=== PATIENT | female | born 1960 | race Caucasian/White ===

== ENCOUNTER → 2018-12-29 11:37 | Outpatient (CLI) | payer OTHER, SELFPAY ==
[2018-12-29 11:33] VITALS: BMI 31.0
--- NOTE | 2018-12-29 11:46 | RAD_ITS ---
STUDY: X-RAY - RIGHT KNEE REASON FOR EXAM: Fall. TECHNIQUE: 4 view(s) of the knee. COMPARISON: None. FINDINGS: Normal visualized distal femur. Normal visualized proximal tibia and fibula. Normal proximal tibiofibular articulation. There is mild joint space narrowing of the medial femorotibial compartment. Normal lateral femorotibial compartment. Normal patellofemoral articulation. There is mild patellar enthesopathy. There is mild vascular calcification. RAD/Knee 4 or More Views IMPRESSION: Mild arthrosis of the medial femorotibial compartment. Electronically Signed: Gabriel Lindsay MD at 12:40 EDT Tel , Service support ,
--- NOTE | 2018-12-29 11:49 | RAD_ITS ---
STUDY: X-RAY - LEFT KNEE REASON FOR EXAM: Fall. TECHNIQUE: 4 view(s) of the knee. COMPARISON: None. FINDINGS: Normal visualized distal femur. Normal visualized proximal tibia and fibula. Normal proximal tibiofibular articulation. There is mild joint space narrowing of the medial femorotibial compartment. There is mild joint space narrowing of the lateral femorotibial compartment. Normal patellofemoral articulation. There is vascular calcification. RAD/Knee 4 or More Views IMPRESSION: Mild arthrosis of the medial and lateral femorotibial compartments. Electronically Signed: Gabriel Lindsay MD at 14:20 EDT Tel , Service support ,
== END ==
PROVIDERS: Referring Provider Physician Assistant Surgical; Visit Provider Physician Assistant Surgical
DX: S80.01XA Contusion of right knee, initial encounter (principal); S80.02XA Contusion of left knee, initial encounter; X58.XXXA Exposure to other specified factors, initial encounter; Y93.9 Activity, unspecified; Y92.9 Unspecified place or not applicable; Y99.9 Unspecified external cause status
CPT/HCPCS: 73564

== ENCOUNTER → 2021-04-29 | Outpatient (CLI) | payer BC, SELFPAY ==
[2021-04-29 10:31] VITALS: BMI 33.3
[2021-04-29 14:43] LABS: Mucous, Urine 0 SEEN /hpf (<or=2+)
[2021-04-29 14:46] LABS: Color, Urine Yellow (Yellow); Glucose, Dipstick Normal (Normal); Ketone-Dipstick Negative (Negative); Leukocyte Esterase-Dipstick 500 /ul (Negative); Nitrite-Dipstick Positive (Negative); Occult Blood-Urine 250 /ul (Negative); Protein-Dipstick 100 mg/dl (Negative); Specific Gravity, Urine 1.005 (1.002-1.030); Urine Bilirubin Dipstick Negative (Negative); Urine Clarity Clear (Clear); Urine Urobilinogen Normal (Normal)
[2021-04-29 14:55] LABS: Bacteria 2+ /hpf (None Seen); Red Blood Cells-Urine 5-10 SEEN /hpf (0-5); Squamous Epithelial Cells - UA 0-5 SEEN /hpf (5-10); White Blood Cells 10-25 SEEN /hpf (0-5)
== END | disposition home or self-care (01) ==
PROVIDERS: Referring Provider Nurse Practitioner Family; Visit Provider Nurse Practitioner Family
DX: N39.0 Urinary tract infection, site not specified (principal)
CPT/HCPCS: 81001; 87077; 87086; 87088; 87186

== ENCOUNTER 2024-05-19 08:00 | Outpatient (RCR) | payer BC, SELFPAY ==
[2024-05-18 13:12] VITALS: BP 164/95; PULSE 98; RESP 18; TEMP 36.3; BMI 38.2
--- NOTE | 2024-05-19 07:46 | VDLE_ITS ---
Reason For Study: BLE Swelling RIGHT LEFT CFV is compressible, spontaneous, phasic, CFV is compressible, spontaneous, phasic, competent and demonstrates normal competent, and demonstrates normal augmentation. augmentation. FV is compressible, spontaneous, phasic, FV is compressible, spontaneous, phasic, competent and demonstrates normal competent and demonstrates normal augmentation. augmentation. POP V is compressible, spontaneous, phasic, POP V is compressible, spontaneous, phasic, competent and demonstrates normal competent and demonstrates normal augmentation. augmentation. T/P Trunk is compressible. T/P Trunk is compressible. PTV is compressible. PTV is compressible. RT PerV is compressible. LT PerV is compressible. SFJ is INCOMPETENT and measures 0.55 cm. SFJ is INCOMPETENT and measures 0.53 cm. GSV proximal thigh measures 0.35 x 0.33 cm. GSV proximal thigh measures 0.36 x 0.41 cm. GSV at knee measures 0.31 x 0.35 cm. GSV at knee measures 0.40 x 0.43 cm. GSV is competent throughout. GSV is competent throughout. SSV proximal calf is competent and measures SSV proximal calf is competent and measures 0.11 x 0.15 cm. 0.31 x 0.33 cm. Procedure Exam performed in department. This is a venous duplex using B-mode, color flow and spectral Doppler. The exam was diagnostic. VL/Venous Duplex US - Nolan Extrem Interpretation Summary Deep veins of the lower extremities are bilaterally patent and compressible seg mentally. There is no evidence of deep vein thrombosis on either side. Valvular competence appears in tact within the proximal deep venous systems bilaterally. The great saphenous veins appear bila terally patent and compressible segmentally. Sapheno-femoral junctions are bilaterally incompetent . Valvular competence appears to be intact segmentally within the great saphenous veins bi laterally. Small saphenous veins are patent and competent bilaterally. Ordering Physician: Stevenson Callaway Referring Physician: Samia Dominguez Performed By: Greg Lopez RVT
--- NOTE | 2024-05-19 19:20 | HP.PCM_ITS ---
History of Present Illness Date of Service: 05/18/24 Chief Complaint: Bilateral lower extremity ulcerations History of Wound: This is a 63-year-old female who presents with ulcerations of the calves bilaterally. The ulcerations have been present for several months. Denies a history of prior ulcerations in her legs. She denies a history of thrombophlebitis. She claims to sleep on a flat mattress at night. She is not active. She spends long hours each day sitting idlely. The patient claims that the ulcerations are the result of cuts and scrapes. In other words, she claims that the ulcerations are due to trauma. However, the appearance and distribution is more consistent with venous stasis ulcerations. The patient has recently been treated by other providers using Julián wrap's to the lower extremities and has completed a course of oral Bactrim. The patient denies a history of diabetes mellitus, myocardial infarction, congestive heart failure, cerebrovascular accident, renal disease, pulmonary disease, and thyroid disease. [facility] Medical History Venous stasis ulcer Venous stasis ulcer Chronic venous insufficiency Obesity (BMI 30-39.9) Encounter for smoking cessation counseling Smoker History of smoking Chronic use of steroids History of rheumatoid arthritis Arthritis Home Medications ?Medication ?Instructions ?Recorded ?Last Taken ?Type ropinirole 5 mg tablet 5 mg PO DAILY 04/29/21 Unknown History abatacept 125 mg/mL subcutaneous 125 mg subcut QWEEK 05/18/24 Unknown History syringe (Orencia) duloxetine 30 mg capsule,delayed mg PO 05/18/24 Unknown History release duloxetine 60 mg capsule,delayed 60 mg PO DAILY 05/18/24 Unknown History release nicotine 14 mg/24 hr daily 1 patch topical QHS 05/18/24 Unknown History transdermal patch nicotine 7 mg/24 hr daily 1 patch topical DAILY 05/18/24 Unknown History transdermal patch prednisone 5 mg tablet 10 mg PO BID 05/18/24 Unknown History ropinirole 2 mg tablet 2 mg PO QPM 05/18/24 Unknown History sulfamethoxazole 800 1 tab PO Q12.TCU 05/18/24 Unknown History mg-trimethoprim 160 mg tablet Allergy/AdvReac Type Severity Reaction Status Date / Time No Known Allergies Allergy Verified 05/18/24 13:12 Family History Mother Breast cancer Father Myocardial infarction Surgical History laser surgery on back History of repair of left rotator cuff History of carpal tunnel repair History of hysterectomy Social History Smoking Status: Current every day smoker alcohol intake: current alcohol intake frequency: holidays/special occasions only Alcohol type: beer Vital Signs Vital Signs Vital Signs: Weight Weight: 230 lb Body Mass Index (BMI) 38.2 Physical Exam Const alert, oriented x3, no apparent distress, no limitations, healthy appearing and well nourished Constitutional Narrative: The patient is mildly obese, with a BMI of 38.2. General Appearance: cooperative, comfortable, well kempt and well developed Orientation / Consciousness: awake, oriented to person, oriented to place and oriented to time HEENT normocephalic and head/scalp atraumatic Head and Scalp: normal to inspection, normocephalic and atraumatic Face and Sinus: normal facial exam Nose: external nose normal External Ear: external ears normal Eyes PERRL and EOMs intact bilaterally General Eye: normal appearance of both eyes Neck full ROM Chest inspection of chest normal Resp normal respiratory effort, normal air movement, no retractions, no use of accessory muscles and clear to auscultation bilaterally Effort and Inspection: able to speak in complete sentences Cardio regular rate, regular rhythm, S1 normal heart sound and S2 normal heart sound Extremity no calf tenderness General Extremity: Negative for clubbing or cyanosis Skin Wound Narrative: Mild swelling is noted in the lower extremities bilaterally. Ulcerations are noted in the lower extremities bilaterally. They are located on the left lateral calf, both superiorly and inferiorly. There is also an ulceration on t he left medial calf. A clustered ulceration is noted on the right lateral calf. The dimensions of the ulcerations are documented elsewhere. There is no sign of infection or cellulitis. A small amount of bioburden and nonviable tissue is noted at each site. Hair: normal Neuro oriented x3, CN's II-XII intact bilaterally, moves all extremities and no focal motor deficits Sensorium / Orientation: awake, alert, oriented to person, oriented to place and oriented to time Psych Appearance: grossly normal and appropriate Attitude: calm Activity / Motor Behavior: appropriate eye contact Speech: normal speech Mood & Affect: euthymic mood Thought Process: normal thought process Thought Content: normal thought content Attention / Concentration: attention grossly intact Debridement Note Debridement Note Wound debrided: Left lateral calf ulcerations, superior and inferior Laterality: Left Type of Debridement: Excisional debridement Anesthesia Used: 5% Lidocaine Gel and Cetacaine Depth: Down to and including healthy tissue and in the subcutaneous layer Percentage of wound debrided: 100 Instrument Used: 5mm curette Tissue Removed: Bioburden and nonviable tissue Severity: Fat Layer Exposed Amount of bleeding with debridement: Mild Bleeding Controlled with: Compression and gauze Patient tolerated procedure: Patient tolerated procedure well Post-Debridement Measurements and Additional Note: Post-Debridement Measurements/Treatment - Nurse 1 - General Ulcer Assessment Start: 05/18/24 13:12 Freq: Status: Active Protocol: GAYATHRI Activity Type Activity Date Activity User E-sign Co-sign Detail Recorded Client Recorded Date Recorded By Document 05/18/24 13:12 KW gj 05/18/24 13:30 KW 05/18/24 13:12 - Today's Visit Information Type of service Initial Visit Arrival Mode Ambulatory Patient Identification Verified (Name & Yes ) Height and Weight Height 5 ft 5 in Weight 230 lb Weight in Pounds 230.0 lbs Weight Measurement Method Estimated by Patient Body Mass Index (BMI) 38.2 BMI Classification Obese BSA - Vidya 2.10 Vital Signs Temperature (97.8 F-99.1 F) 97.3 F L Temperature Source Temporal Pulse Rate (60-100) 98 Pulse Location Monitor Respiratory Rate (12-18) 18 Respiratory rate source Observation Oxygen Delivery Method Room Air Blood Pressure (90/60-120/80) 164/95 H Blood Pressure Mean 118 Source Monitor Position Semi-Fowlers Blood Pressure Location Left Arm History Since Last Visit- (Skip if this is Patient's initial visit) Left Footwear Regular Shoe Right Footwear Regular Shoe Pain Scale: 0-10 Numeric Is Patient Pain Free? No Lower Extremity Assessment/ Foot Assessment/ Toe Nail Assessment Right -Posterior Tibial Palpable Yes -Dorsalis Pedis Palpable Yes -Extremity Color Hemosiderin -Temperature of Extremity Cool -Capillary Refill Less than 3 Seconds -Thick No -Discolored No -Deformed No -Improper Length & Hygeine No Left -Posterior Tibial Palpable Yes -Posterior Tibial Doppler Multiphasic -Dorsalis Pedis Palpable Yes -Dorsalis Pedis Doppler Multiphasic -Extremity Color Hemosiderin -Hair Growth on Legs No -Hair Growth on Toes No -Temperature of Extremity Cool -Capillary Refill Less than 3 Seconds -Thick No -Discolored No -Deformed No -Improper Length & Hygeine No Communication Assessment Preferred language Hungarian Transportation Dispatcher Required No Able to Read No Able to Write No Communication Tools None Caregiver Communication Skills No Impairment Impairment Right Hearing Abillity Normal Left Hearing Abillity Normal Visual Assistive Devices Glasses Teaching Assessment Preferences Verbal,Written, Demonstration Barriers to Learning None Readiness To Learn Excellent Willingness to Engage in Self Management High Activies Readiness to Engage in Self Management High Activities Anxiety Level Calm Cooperation Cooperative Perception Coherent Interest in Health Problem Asks Questions Education Importance Acknowledges Need Does Patient Smoke tobacco or other Yes substances Smoking Status Current every day smoker Is Patient Diabetic No Functional Assessment Recent Decline in Ability to Perform Denies Any Declines Culture/Congregational/Latex Spooler Cultural/Congregational Needs that may affect No Treatment Plan Would you allow our hospital assistant family teacher to No meet you for the purpose of spiritual/ emotional support? Latex Spooler to contact place of sikhism No WC - Nurse 1 - General Ulcer Measurement Start: 05/18/24 13:12 Freq: Status: Active Protocol: Activity Type Activity Date Activity User E-sign Co-sign Detail Recorded Client Recorded Date Recorded By Document 05/18/24 13:12 KW gj 05/18/24 13:30 KW 05/18/24 13:12 Wound Center Nurse 1 #4 RT LAT LE CLUSTER -Current Size (cm) - Length 4.5 -Current Size (cm) - Width 2.7 -Current Size (cm) - Depth 0.1 -Total Square Cm 12.15 -Date of Last Picture (Recall this 05/18/24 field) -Exudate Amt Medium -Exudate Type Serosanguineous -Wound Margin Distinct, Outline Attached -Granulation Amt Large (67-100%) -Granulation Quality [place] -Necrosis Amt Large (67-100%) -Necrotic Tissue Type Adherent Slough -Texture ([place]-wound Skin Appearance) Assessed -Moisture ([place]-wound Skin Appearance) Assessed -Color ([place]-wound Skin Appearance) Assessed, Erythema -Temperature ([place]-wound Skin No Abnormality Appearance) (Pt Warm) -Tenderness on Palpation ([place]-wound No Skin Appearance) -Ulcer Cleansing Soap and Water -Foul Odor after Cleansing No -Anesthetic Used 4% Lidocaine Solution #3 LT MED LE -Current Size (cm) - Length 1 -Current Size (cm) - Width 1.3 -Current Size (cm) - Depth 0.2 -Total Square Cm 1.3 -Date of Last Picture (Recall this 05/18/24 field) -Exudate Amt Medium -Exudate Type Serosanguineous -Wound Margin Distinct, Outline Attached -Granulation Amt Small (1-33%) -Granulation Quality [place] -Necrosis Amt Large (67-100%) -Necrotic Tissue Type Adherent Slough -Texture ([place]-wound Skin Appearance) Assessed -Moisture ([place]-wound Skin Appearance) Assessed -Color ([place]-wound Skin Appearance) Assessed, Erythema -Temperature ([place]-wound Skin No Abnormality Appearance) (Pt Warm) -Tenderness on Palpation ([place]-wound No Skin Appearance) -Ulcer Cleansing Soap and Water -Foul Odor after Cleansing No -Anesthetic Used 4% Lidocaine Solution #2 LT LAT INFERIOR LE -Current Size (cm) - Length 2.4 -Current Size (cm) - Width 1.5 -Current Size (cm) - Depth 0.3 -Total Square Cm 3.60 -Date of Last Picture (Recall this 05/18/24 field) -Exudate Amt Medium -Exudate Type Serosanguineous -Wound Margin Distinct, Outline Attached -Granulation Amt Small (1-33%) -Granulation Quality [place] -Necrosis Amt Large (67-100%) -Necrotic Tissue Type Adherent Slough -Texture ([place]-wound Skin Appearance) Assessed -Moisture ([place]-wound Skin Appearance) Assessed -Color ([place]-wound Skin Appearance) Assessed, Erythema -Temperature ([place]-wound Skin No Abnormality Appearance) (Pt Warm) -Tenderness on Palpation ([place]-wound No Skin Appearance) -Ulcer Cleansing Soap and Water -Foul Odor after Cleansing No -Anesthetic Used 4% Lidocaine Solution #1 LT LAT SUPERIOR LE -Current Size (cm) - Length 1 -Current Size (cm) - Width 1 -Current Size (cm) - Depth 0.1 -Total Square Cm 1 -Date of Last Picture (Recall this 05/18/24 field) -Exudate Amt Small -Exudate Type Serosanguineous -Wound Margin Distinct, Outline Attached -Granulation Amt Medium (34-66%) -Granulation Quality [place] -Necrosis Amt Medium (34-66%) -Necrotic Tissue Type Adherent Slough -Texture ([place]-wound Skin Appearance) Assessed -Moisture ([place]-wound Skin Appearance) Assessed -Color ([place]-wound Skin Appearance) Assessed, Erythema -Temperature ([place]-wound Skin No Abnormality Appearance) (Pt Warm) -Tenderness on Palpation ([place]-wound No Skin Appearance) -Ulcer Cleansing Soap and Water -Foul Odor after Cleansing No -Anesthetic Used 4% Lidocaine Solution Right Calf (cm) 39.8 Right Ankle (cm) 25.2 Left Calf (cm) 40 Left Ankle (cm) 24 WC - Nurse 2 - General Ulcer CM Notes Start: 05/18/24 13:12 Freq: Status: Active Protocol: Activity Type Activity Date Activity User E-sign Co-sign Detail Recorded Client Recorded Date Recorded By Document 05/18/24 14:05 JF 0000 05/18/24 14:20 JF 05/18/24 14:05 Wound Center Nurse 2 #4 RT LAT LE CLUSTER -Time 14:09 -Correct Patient Yes -Correct Side, Site, Position Yes -Correct Procedure Yes -Procedure Performed Yes -Type of Procedure Debridement -Clinical Debridement Subcutaneous -Tissue Removed Subcutaneous -Post Debridement (cm) - Length 4.5 -Post Debridement (cm) - Width 2.8 -Post Debridement (cm) - Depth 0.1 -Total Square (Post) (cm) 12.60 -Area of Debridement (cm) - Length 4.5 -Area of Debridement (cm) - Width 2.8 -Total Square (Area) (cm) 12.60 -Tunneling No -Undermining/Tunneling No -Circular Undermining No -Wound/Ulcer Outcome Not Healed -Ulcer Cleansing Rinsed/ Irrigated with Saline -Foul Odor after Cleansing No -Bioengineered Tissue No -Bleeding Controlled with Pressure -Treatment Response Procedure Tolerated Well -Offloading No -Debridement - Subq, 1st 20sq cm No #3 LT MED LE -Time 14:10 -Correct Patient Yes -Correct Side, Site, Position Yes -Correct Procedure Yes -Procedure Performed Yes -Type of Procedure Debridement -Clinical Debridement Subcutaneous -Tissue Removed Subcutaneous -Post Debridement (cm) - Length 1.1 -Post Debridement (cm) - Width 1.3 -Post Debridement (cm) - Depth 0.2 -Total Square (Post) (cm) 1.43 -Area of Debridement (cm) - Length 1.1 -Area of Debridement (cm) - Width 1.3 -Total Square (Area) (cm) 1.43 -Tunneling No -Undermining/Tunneling No -Circular Undermining No -Wound/Ulcer Outcome Not Healed -Ulcer Cleansing Rinsed/ Irrigated with Saline -Foul Odor after Cleansing No -Bioengineered Tissue No -Bleeding Controlled with Pressure -Treatment Response Procedure Tolerated Well -Offloading No -Debridement - Subq, 1st 20sq cm No #2 LT LAT INFERIOR LE -Time 14:10 -Correct Patient Yes -Correct Side, Site, Position Yes -Correct Procedure Yes -Procedure Performed Yes -Type of Procedure Debridement -Clinical Debridement Subcutaneous -Tissue Removed Subcutaneous -Post Debridement (cm) - Length 2.5 -Post Debridement (cm) - Width 1.5 -Post Debridement (cm) - Depth 0.1 -Total Square (Post) (cm) 3.75 -Area of Debridement (cm) - Length 2.5 -Area of Debridement (cm) - Width 1.5 -Total Square (Area) (cm) 3.75 -Tunneling No -Undermining/Tunneling No -Circular Undermining No -Wound/Ulcer Outcome Not Healed -Ulcer Cleansing Rinsed/ Irrigated with Saline -Foul Odor after Cleansing No -Bioengineered Tissue No -Bleeding Controlled with Pressure -Treatment Response Procedure Tolerated Well -Offloading No -Debridement - Subq, 1st 20sq cm No #1 LT LAT SUPERIOR LE -Time 14:12 -Correct Patient Yes -Correct Side, Site, Position Yes -Correct Procedure Yes -Procedure Performed Yes -Type of Procedure Debridement -Clinical Debridement Subcutaneous -Tissue Removed Subcutaneous -Post Debridement (cm) - Length 1.1 -Post Debridement (cm) - Width 1.0 -Post Debridement (cm) - Depth 0.1 -Total Square (Post) (cm) 1.10 -Area of Debridement (cm) - Length 1.1 -Area of Debridement (cm) - Width 1.0 -Total Square (Area) (cm) 1.10 -Tunneling No -Undermining/Tunneling No -Circular Undermining No -Wound/Ulcer Outcome Not Healed -Ulcer Cleansing Rinsed/ Irrigated with Saline -Foul Odor after Cleansing No -Bioengineered Tissue No -Bleeding Controlled with Pressure -Treatment Response Procedure Tolerated Well -Offloading No -Debridement - Subq, 1st 20sq cm Yes Pain Scale: 0-10 Numeric Is Patient Pain Free? Yes WC - Nurse 3 - General Ulcer D/C NN Start: 05/18/24 13:12 Freq: Status: Active Protocol: Activity Type Activity Date Activity User E-sign Co-sign Detail Recorded Client Recorded Date Recorded By Document 05/18/24 14:36 RB wound 05/18/24 14:37 RB 05/18/24 14:36 Wound Care Center Nurse 3 #4 RT LAT LE CLUSTER -Ulcer Cleansing Rinsed/ Irrigated with Saline -Primary Dressing Applied C Hydrogel ($) -Primary Dressing Covered/Secured with Dry Gauze,Dry Gauze & Roll Gauze,Secured with Tape #3 LT MED LE -Other Dressing hydrogel -Primary Dressing Covered/Secured with Dry Gauze,Dry Gauze & Roll Gauze,Secured with Tape #2 LT LAT INFERIOR LE -Ulcer Cleansing Rinsed/ Irrigated with Saline -Other Dressing hydrogel -Primary Dressing Covered/Secured with Dry Gauze,Dry Gauze & Roll Gauze,Secured with Tape #1 LT LAT SUPERIOR LE -Ulcer Cleansing Rinsed/ Irrigated with Saline -Other Dressing hydrogel -Primary Dressing Covered/Secured with Dry Gauze,Dry Gauze & Roll Gauze,Secured with Tape Right -Tubular Bandage Double Layer -Size of Tubigrip Used Size E -Size E ($) 2 Left -Tubular Bandage Double Layer -Size of Tubigrip Used Size E -Size E ($) 2 Treatment Response Procedure Tolerated Well Pain Scale: 0-10 Numeric Is Patient Pain Free? Yes Teaching: Wound Center Compression Wraps & Stockings -Person Taught Patient -Teaching Method Discussion, Demonstration -Response to teaching Verbalize understanding Dressing Your Wound -Person Taught Patient -Teaching Method Discussion, Demonstration -Response to teaching Verbalize understanding WC - Visit Discharge Discharge Condition Stable Ambulatory Status Ambulatory Transportation Private Auto Medication Reconcilliation completed & No provided to patient/care provider Clinical Summary of Care Provided Yes Additional Wound Wound debrided: Left medial calf ulceration Laterality: Left Type of Debridement: Excisional debridement Anesthesia Used: 5% Lidocaine Gel and Cetacaine Depth: Down to and including healthy tissue and in the subcutaneous layer Percentage of wound debrided: 100 Instrument Used: 5mm curette Tissue Removed: Bioburden and nonviable tissue Severity: Fat Layer Exposed Amount of bleeding with debridement: Mild Bleeding Controlled with: Compression and gauze Patient tolerated procedure: Patient tolerated procedure well Additional Wound Wound debrided: Clustered right lateral calf ulceration Laterality: Right Type of Debridement: Excisional debridement Anesthesia Used: 5% Lidocaine Gel and Cetacaine Depth: Down to and including healthy tissue and in the subcutaneous layer Percentage of wound debrided: 100 Instrument Used: 5mm curette Tissue Removed: Bioburden and nonviable tissue Severity: Fat Layer Exposed Amount of bleeding with debridement: Mild Bleeding Controlled with: Compression and gauze Patient tolerated procedure: Patient tolerated procedure well Charges/Coding Multi Select Codes Visit Charges Office Visit/Consults: 50553 OV L4 New 45 min Integumentary Integumentary CPT Codes: 38781 Angelic subq tissue 20 sq cm/< (09582 - Right leg; 94466 - Left leg) Assessment/Plan Assessment/Plan (1) Venous stasis ulcer: CODE(S): I83.009 - Varicose veins of unspecified lower extremity with ulcer of unspecified site; L97.909 - Non-pressure chronic ulcer of unspecified part of unspecified lower leg with unspecified severity QUALIFIERS: Venous stasis ulcer site: calf Varicose vein presence: with varicose veins Laterality: right Non-pressure ulcer stage: with fat layer exposed Qualified Code(s): I83.012 - Varicose veins of right lower extremity with ulcer of calf; L97.212 - Non-pressure chronic ulcer of right calf with fat layer exposed (2) Venous stasis ulcer: CODE(S): I83.009 - Varicose veins of unspecified lower extremity with ulcer of unspecified site; L97.909 - Non-pressure chronic ulcer of unspecified part of unspecified lower leg with unspecified severity QUALIFIERS: Venous stasis ulcer site: calf Varicose vein presence: with varicose veins Laterality: left Non-pressure ulcer stage: with fat layer exposed Qualified Code(s): I83.022 - Varicose veins of left lower extremity with ulcer of calf; L97.222 - Non-pressure chronic ulcer of left calf with fat layer exposed (3) Chronic venous insufficiency: CODE(S): I87.2 - Venous insufficiency (chronic) (peripheral) (4) Chronic use of steroids: (5) Smoker: CODE(S): F17.200 - Nicotine dependence, unspecified, uncomplicated (6) History of smoking: CODE(S): Z87.891 - Personal history of nicotine dependence (7) Encounter for smoking cessation counseling: CODE(S): Z71.6 - Tobacco abuse counseling (8) History of rheumatoid arthritis: CODE(S): Z87.39 - Personal history of other diseases of the musculoskeletal system and connective tissue (9) Obesity (BMI 30-39.9): CODE(S): E66.9 - Obesity, unspecified (10) History of carpal tunnel repair: CODE(S): Z98.890 - Other specified postprocedural states (11) History of repair of left rotator cuff: CODE(S): Z98.890 - Other specified postprocedural states PLAN: Plan This is a 63-year-old female who presented with ulcerations on the lower extremities bilaterally. These ulcerations have been present for several months, and have failed to heal appropriately. By appearances, the ulcerations appear to be venous in origin. The appropriate measures relative to the management of chronic venous insufficiency have been discussed with the patient in detail. Patient has been instructed to elevate her lower extremities is much as possible. She is to continue sleeping on a flat mattress at night. She is to elevate her lower extremities during daytime hours as well. Leg elevation is to be to heart level, or higher. The patient has been provided Tubigrip's to be worn on a daily basis. Activity and ambulation have been encouraged. We are to implement the use of collagen hydrogel which will be applied to her ulcerations on a daily basis. The patient has been instructed in the appropriate means of application. A venous duplex examination is to be obtained. The patient has been instructed to maintain a nutritious diet. She has been advised to discontinue her smoking habit. In addition, because she is on chronic steroid therapy for her rheumatoid arthritis. It has been explained that the steroids may delay the wound healing process. Total time: 56 minutes
--- NOTE | 2024-05-21 09:01 | WC ---
PHOTO 05/18/24 RIGHT LATERAL CLUSTER
--- NOTE | 2024-05-21 09:03 | WC ---
PHOTO 05/18/24 LEFT LATERAL LE
--- NOTE | 2024-05-21 09:04 | WC ---
PHOTO 05/18/24 LEFT LATERAL INER LE
== END 2024-05-19 23:59 | disposition home or self-care (01) ==
LOC: WC 08:00
PROVIDERS: PCP Student in an Organized Health Care Education/Training Program; Referring Provider Student in an Organized Health Care Education/Training Program; Visit Provider Surgery
DX: I83.012 Varicose veins of right lower extremity with ulcer of calf (principal); L97.212 Non-pressure chronic ulcer of right calf with fat layer exposed; I83.022 Varicose veins of left lower extremity with ulcer of calf; L97.222 Non-pressure chronic ulcer of left calf with fat layer exposed; M06.9 Rheumatoid arthritis, unspecified; E66.9 Obesity, unspecified; Z68.38 Body mass index [BMI] 38.0-38.9, adult; F17.200 Nicotine dependence, unspecified, uncomplicated; Z71.6 Tobacco abuse counseling; Z79.52 Long term (current) use of systemic steroids; Z79.899 Other long term (current) drug therapy; Z98.890 Other specified postprocedural states
CPT/HCPCS: 11042; 93970; 99214; G0463

== ENCOUNTER 2024-06-15 13:30 | Outpatient (RCR) | payer BC, SELFPAY ==
[2024-05-25 00:04] VITALS: BP 164/95; PULSE 98; RESP 18; TEMP 36.3; BMI 38.2
[2024-05-25 13:18] VITALS: BP 165/101; PULSE 95; RESP 18; TEMP 36.3; BMI 38.2
--- NOTE | 2024-05-25 14:13 | HP.PCM_ITS ---
History of Present Illness Date of Service: 05/25/24 Chief Complaint: Bilateral lower extremity ulcerations History of Wound: This is a 63-year-old female who presented with ulcerations of the calves bilaterally. The ulcerations had been present for several months. She denied a history of prior ulcerations in her legs. She denied a history of thrombophlebitis. She claims to sleep on a flat mattress at night. She is not active. She spends long hours each day sitting idlely. The patient claims that the ulcerations are the result of cuts and scrapes. In other words, she claims that the ulcerations are due to trauma. However, the appearance and distribution is more consistent with venous stasis ulcerations. The patient has recently been treated by other providers using Julián wrap's to the lower extremities and has completed a course of oral Bactrim. The patient denied a history of diabetes mellitus, myocardial infarction, congestive heart failure, cerebrovascular accident, renal disease, pulmonary disease, and thyroid disease. [facility] Medical History Venous stasis ulcer Venous stasis ulcer Chronic venous insufficiency Obesity (BMI 30-39.9) Encounter for smoking cessation counseling Smoker History of smoking Chronic use of steroids History of rheumatoid arthritis Arthritis Home Medications ?Medication ?Instructions ?Recorded ?Last Taken ?Type ropinirole 5 mg tablet 5 mg PO DAILY 04/29/21 Unknown History abatacept 125 mg/mL subcutaneous 125 mg subcut QWEEK 05/18/24 Unknown History syringe (Orencia) duloxetine 30 mg capsule,delayed mg PO 05/18/24 Unknown History release duloxetine 60 mg capsule,delayed 60 mg PO DAILY 05/18/24 Unknown History release nicotine 14 mg/24 hr daily 1 patch topical QHS 05/18/24 Unknown History transdermal patch nicotine 7 mg/24 hr daily 1 patch topical DAILY 05/18/24 Unknown History transdermal patch prednisone 5 mg tablet 10 mg PO BID 05/18/24 Unknown History ropinirole 2 mg tablet 2 mg PO QPM 05/18/24 Unknown History sulfamethoxazole 800 1 tab PO Q12.TCU 05/18/24 Unknown History mg-trimethoprim 160 mg tablet Allergy/AdvReac Type Severity Reaction Status Date / Time No Known Allergies Allergy Verified 05/18/24 13:12 Family History Mother Breast cancer Father Myocardial infarction Surgical History laser surgery on back History of repair of left rotator cuff History of carpal tunnel repair History of hysterectomy Social History Smoking Status: Current every day smoker alcohol intake: current alcohol intake frequency: holidays/special occasions only Alcohol type: beer Vital Signs Vital Signs Vital Signs: 05/25/24 00:04 05/25/24 13:18 Temperature 97.3 F L 97.4 F L Temperature Source Temporal Pulse Rate 98 95 Respiratory Rate 18 18 Blood Pressure 164/95 H 165/101 H Blood Pressure Mean 118 122 Blood Pressure Source Monitor Monitor Blood Pressure Position Semi-Fowlers Blood Pressure Location Left Arm Left Arm Oxygen Delivery Method Room Air Weight Weight: 230 lb Body Mass Index (BMI) 38.2 Physical Exam Const alert, oriented x3, no apparent distress, no limitations, healthy appearing and well nourished Constitutional Narrative: The patient is mildly obese, with a BMI of 38.2. General Appearance: cooperative, comfortable, well kempt and well developed Orientation / Consciousness: awake, oriented to person, oriented to place and oriented to time HEENT normocephalic and head/scalp atraumatic Head and Scalp: normal to inspection, normocephalic and atraumatic Face and Sinus: normal facial exam Nose: external nose normal External Ear: external ears normal Eyes PERRL and EOMs intact bilaterally General Eye: normal appearance of both eyes Neck full ROM Chest inspection of chest normal Resp normal respiratory effort, normal air movement, no retractions, no use of accessory muscles and clear to auscultation bilaterally Effort and Inspection: able to speak in complete sentences Cardio regular rate, regular rhythm, S1 normal heart sound and S2 normal heart sound Extremity no calf tenderness General Extremity: Negative for clubbing or cyanosis Skin Wound Narrative: Minimal swelling is noted in the lower extremities bilaterally. Ulcerations are noted in the lower extremities bilaterally. They are located on the left lateral calf, both superiorly and inferiorly. There is also an ulceration on the left medial calf. A clustered ulceration is noted on the right lateral calf. The dimensions of the ulcerations are documented elsewhere. There is no sign of infection or cellulitis. A small amount of bioburden and nonviable tissue are noted at each site. Of note, there are numerous small scratches and scrapes on both lower extremities which are located diffusely. There are also numerous scratches on both upper extremities. It is observed that there are 4 Band-Aids in total on the patient's legs, and 2 Band-Aids on each arm. Hair: normal Neuro oriented x3, CN's II-XII intact bilaterally, moves all extremities and no focal motor deficits Sensorium / Orientation: awake, alert, oriented to person, oriented to place and oriented to time Psych Appearance: grossly normal and appropriate Attitude: calm Activity / Motor Behavior: appropriate eye contact Speech: normal speech Mood & Affect: euthymic mood Thought Process: normal thought process Thought Content: normal thought content Attention / Concentration: attention grossly intact Debridement Note Debridement Note Wound debrided: Left lateral calf ulcerations, superior and inferior Laterality: Left Type of Debridement: Excisional debridement Anesthesia Used: 5% Lidocaine Gel and Cetacaine Depth: Down to and including healthy tissue and in the subcutaneous layer Percentage of wound debrided: 100 Instrument Used: 5mm curette Tissue Removed: Bioburden and nonviable tissue Severity: Fat Layer Exposed Amount of bleeding with debridement: Mild Bleeding Controlled with: Compression and gauze Patient tolerated procedure: Patient tolerated procedure well Post-Debridement Measurements and Additional Note: Post-Debridement Measurements/Treatment - Nurse 1 - General Ulcer Assessment Start: 05/25/24 13:16 Freq: Status: Active Protocol: IRENA.LOWMARY Activity Type Activity Date Activity User E-sign Co-sign Detail Recorded Client Recorded Date Recorded By Document 05/25/24 13:18 KW 05/25/24 13:31 KW 05/25/24 13:18 - Today's Visit Information Type of service Follow-up Visit (Physician/INTERNAL COMMUNICATIONS MANAGER ) Arrival Mode Ambulatory Patient Identification Verified (Name & Yes ) Height and Weight Body Mass Index (BMI) 38.2 BMI Classification Obese Vital Signs Temperature (97.8 F-99.1 F) 97.4 F L Temperature Source Temporal Pulse Rate (60-100) 95 Pulse Location Monitor Respiratory Rate (12-18) 18 Respiratory rate source Observation Oxygen Delivery Method Room Air Blood Pressure (90/60-120/80) 165/101 H Blood Pressure Mean 122 Source Monitor Position Semi-Fowlers Blood Pressure Location Left Arm History Since Last Visit- (Skip if this is Patient's initial visit) Have you changed medications since your No last visit? Any new allergies or adverse reactions No Had a fall/change in ADL's that may No increase risk of falls Signs or symptoms of abuse and/or No neglect since last visit Have you been in the hospital since your No last visit? Has dressing in place as prescribed Yes Has compression in place as prescribed Yes Has offloadiing in place as prescribed N/A Experienced any changes in pain level or No management Left Footwear Regular Shoe Right Footwear Regular Shoe Pain Scale: 0-10 Numeric Is Patient Pain Free? Yes WC - Nurse 1 - General Ulcer Measurement Start: 05/25/24 13:16 Freq: Status: Active Protocol: Activity Type Activity Date Activity User E-sign Co-sign Detail Recorded Client Recorded Date Recorded By Document 05/25/24 13:18 KW kl 05/25/24 13:31 KW 05/25/24 13:18 Wound Center Nurse 1 #4 RT LAT LE CLUSTER -Current Size (cm) - Length 4.5 -Current Size (cm) - Width 3.3 -Current Size (cm) - Depth 0.1 -Total Square Cm 14.85 -Date of Last Picture (Recall this 05/25/24 field) -Exudate Amt Medium -Exudate Type Serosanguineous -Wound Margin Distinct, Outline Attached -Granulation Amt Large (67-100%) -Granulation Quality Red -Necrosis Amt Small (1-33%) -Necrotic Tissue Type Adherent Slough -Texture (Carmenza-wound Skin Appearance) Assessed -Moisture (Carmenza-wound Skin Appearance) Assessed -Color (Carmenza-wound Skin Appearance) Assessed, Erythema -Temperature ([place]armenza-wound Skin No Abnormality Appearance) (Pt Warm) -Tenderness on Palpation (Carmenza-wound No Skin Appearance) -Ulcer Cleansing Rinsed/ Irrigated with Saline -Foul Odor after Cleansing No -Anesthetic Used 5% Lidocaine Gel #3 LT MED LE -Current Size (cm) - Length 0.6 -Current Size (cm) - Width 1 -Current Size (cm) - Depth 0.2 -Total Square Cm 0.6 -Date of Last Picture (Recall this 05/25/24 field) -Exudate Amt Small -Exudate Type Serosanguineous -Wound Margin Distinct, Outline Attached -Granulation Amt Large (67-100%) -Granulation Quality Red -Texture (Carmenza-wound Skin Appearance) Assessed -Moisture (Carmenza-wound Skin Appearance) Assessed -Color (Carmenza-wound Skin Appearance) Assessed, Erythema -Temperature (Carmenza-wound Skin No Abnormality Appearance) (Pt Warm) -Tenderness on Palpation (Carmenza-wound No Skin Appearance) -Ulcer Cleansing Rinsed/ Irrigated with Saline -Foul Odor after Cleansing No -Anesthetic Used 5% Lidocaine Gel #2 LT LAT INFERIOR LE -Current Size (cm) - Length 2.1 -Current Size (cm) - Width 1.2 -Current Size (cm) - Depth 0.4 -Total Square Cm 2.52 -Date of Last Picture (Recall this 05/25/24 field) -Exudate Amt Medium -Exudate Type Serosanguineous -Wound Margin Distinct, Outline Attached -Granulation Amt Large (67-100%) -Granulation Quality Red -Necrosis Amt Small (1-33%) -Necrotic Tissue Type Adherent Slough -Texture (Carmenza-wound Skin Appearance) Assessed -Moisture (Carmenza-wound Skin Appearance) Assessed -Color (Carmenza-wound Skin Appearance) Assessed, Erythema -Temperature ([place]armenza-wound Skin No Abnormality Appearance) (Pt Warm) -Ulcer Cleansing Rinsed/ Irrigated with Saline -Foul Odor after Cleansing No -Anesthetic Used 5% Lidocaine Gel #1 LT LAT SUPERIOR LE -Current Size (cm) - Length 1 -Current Size (cm) - Width 0.9 -Current Size (cm) - Depth 0.1 -Total Square Cm 0.9 -Date of Last Picture (Recall this 05/25/24 field) -Exudate Amt Small -Exudate Type Serosanguineous -Granulation Amt Large (67-100%) -Granulation Quality Red -Necrosis Amt Small (1-33%) -Necrotic Tissue Type Adherent Slough -Texture (Carmenza-wound Skin Appearance) Assessed -Moisture (Carmenza-wound Skin Appearance) Assessed -Color (Carmenza-wound Skin Appearance) Assessed, Erythema -Temperature (Carmenza-wound Skin No Abnormality Appearance) (Pt Warm) -Tenderness on Palpation (Carmenza-wound No Skin Appearance) -Ulcer Cleansing Rinsed/ Irrigated with Saline -Foul Odor after Cleansing No -Anesthetic Used 5% Lidocaine Gel WC - Nurse 2 - General Ulcer CM Notes Start: 05/25/24 13:16 Freq: Status: Active Protocol: Activity Type Activity Date Activity User E-sign Co-sign Detail Recorded Client Recorded Date Recorded By Document 05/25/24 13:41 DS 1 05/25/24 13:49 DS 05/25/24 13:41 Wound Center Nurse 2 #4 RT LAT LE CLUSTER -Time 13:15 -Correct Patient Yes -Correct Side, Site, Position Yes -Correct Procedure Yes -Procedure Performed Yes -Type of Procedure Debridement -Clinical Debridement Subcutaneous -Tissue Removed Epidermis, Subcutaneous -Post Debridement (cm) - Length 4.4 -Post Debridement (cm) - Width 1.6 -Post Debridement (cm) - Depth 0.1 -Total Square (Post) (cm) 7.04 -Area of Debridement (cm) - Length 4.4 -Area of Debridement (cm) - Width 1.6 -Total Square (Area) (cm) 7.04 -Tunneling No -Undermining/Tunneling No -Circular Undermining No -Wound/Ulcer Outcome Not Healed -Bleeding Controlled with Pressure -Treatment Response Procedure Tolerated Well -Debridement - Subq, 1st 20sq cm No #3 LT MED LE -Time 13:15 -Correct Patient Yes -Correct Side, Site, Position Yes -Correct Procedure Yes -Procedure Performed Yes -Type of Procedure Debridement -Clinical Debridement Subcutaneous -Tissue Removed Subcutaneous -Post Debridement (cm) - Length 0.8 -Post Debridement (cm) - Width 1.0 -Post Debridement (cm) - Depth 0.1 -Total Square (Post) (cm) 0.80 -Area of Debridement (cm) - Length 0.8 -Area of Debridement (cm) - Width 1.0 -Total Square (Area) (cm) 0.80 -Tunneling No -Undermining/Tunneling No -Circular Undermining No -Wound/Ulcer Outcome Not Healed -Ulcer Cleansing Rinsed/ Irrigated with Saline -Bleeding Controlled with Pressure -Treatment Response Procedure Tolerated Well -Debridement - Subq, 1st 20sq cm No #2 LT LAT INFERIOR LE -Time 13:15 -Correct Patient Yes -Correct Side, Site, Position Yes -Correct Procedure Yes -Procedure Performed Yes -Type of Procedure Debridement -Clinical Debridement Subcutaneous -Tissue Removed Subcutaneous -Post Debridement (cm) - Length 1.5 -Post Debridement (cm) - Width 1.4 -Post Debridement (cm) - Depth 0.1 -Total Square (Post) (cm) 2.10 -Area of Debridement (cm) - Length 1.5 -Area of Debridement (cm) - Width 1.4 -Total Square (Area) (cm) 2.10 -Tunneling No -Undermining/Tunneling No -Circular Undermining No -Wound/Ulcer Outcome Not Healed -Bleeding Controlled with Pressure -Treatment Response Procedure Tolerated Well -Debridement - Subq, 1st 20sq cm No #1 LT LAT SUPERIOR LE -Time 13:15 -Correct Patient Yes -Correct Side, Site, Position Yes -Correct Procedure Yes -Procedure Performed Yes -Type of Procedure Debridement -Clinical Debridement Subcutaneous -Tissue Removed Subcutaneous -Post Debridement (cm) - Length 1.0 -Post Debridement (cm) - Width 0.6 -Post Debridement (cm) - Depth 0.4 -Total Square (Post) (cm) 0.60 -Area of Debridement (cm) - Length 1.0 -Area of Debridement (cm) - Width 0.6 -Total Square (Area) (cm) 0.60 -Tunneling No -Undermining/Tunneling No -Circular Undermining No -Wound/Ulcer Outcome Not Healed -Bleeding Controlled with Pressure -Treatment Response Procedure Tolerated Well -Debridement - Subq, 1st 20sq cm Yes Pain Scale: 0-10 Numeric Is Patient Pain Free? Yes Additional Wound Wound debrided: Left medial calf ulceration Laterality: Left Type of Debridement: Excisional debridement Anesthesia Used: 5% Lidocaine Gel Depth: Down to and including healthy tissue and in the subcutaneous layer Percentage of wound debrided: 100 Instrument Used: 5mm curette Tissue Removed: Bioburden and nonviable tissue Severity: Fat Layer Exposed Amount of bleeding with debridement: Mild Bleeding Controlled with: Compression and gauze Patient tolerated procedure: Patient tolerated procedure well Additional Wound Wound debrided: Clustered right lateral calf ulceration Laterality: Right Type of Debridement: Excisional debridement Anesthesia Used: 5% Lidocaine Gel and Cetacaine Depth: Down to and including healthy tissue and in the subcutaneous layer Percentage of wound debrided: 100 Instrument Used: 5mm curette Tissue Removed: Bioburden and nonviable tissue Severity: Fat Layer Exposed Amount of bleeding with debridement: Mild Bleeding Controlled with: Compression and gauze Patient tolerated procedure: Patient tolerated procedure well Charges/Coding Multi Select Codes Integumentary Integumentary CPT Codes: 34377 Angelic subq tissue 20 sq cm/< (41857 - Right leg; 55576 - Left leg) Assessment/Plan Assessment/Plan (1) Venous stasis ulcer: CODE(S): I83.009 - Varicose veins of unspecified lower extremity with ulcer of unspecified site; L97.909 - Non-pressure chronic ulcer of unspecified part of unspecified lower leg with unspecified severity QUALIFIERS: Venous stasis ulcer site: calf Varicose vein presence: with varicose veins Laterality: right Non-pressure ulcer stage: with fat layer exposed Qualified Code(s): I83.012 - Varicose veins of right lower extremity with ulcer of calf; L97.212 - Non-pressure chronic ulcer of right calf with fat layer exposed (2) Venous stasis ulcer: CODE(S): I83.009 - Varicose veins of unspecified lower extremity with ulcer of unspecified site; L97.909 - Non-pressure chronic ulcer of unspecified part of unspecified lower leg with unspecified severity QUALIFIERS: Venous stasis ulcer site: calf Varicose vein presence: with varicose veins Laterality: left Non-pressure ulcer stage: with fat layer exposed Qualified Code(s): I83.022 - Varicose veins of left lower extremity with ulcer of calf; L97.222 - Non-pressure chronic ulcer of left calf with fat layer exposed (3) Chronic venous insufficiency: CODE(S): I87.2 - Venous insufficiency (chronic) (peripheral) (4) Chronic use of steroids: (5) Smoker: CODE(S): F17.200 - Nicotine dependence, unspecified, uncomplicated (6) History of smoking: CODE(S): Z87.891 - Personal history of nicotine dependence (7) Encounter for smoking cessation counseling: CODE(S): Z71.6 - Tobacco abuse counseling (8) History of rheumatoid arthritis: CODE(S): Z87.39 - Personal history of other diseases of the musculoskeletal system and connective tissue (9) Obesity (BMI 30-39.9): CODE(S): E66.9 - Obesity, unspecified (10) History of carpal tunnel repair: CODE(S): Z98.890 - Other specified postprocedural states (11) History of repair of left rotator cuff: CODE(S): Z98.890 - Other specified postprocedural states PLAN: Plan This is a 63-year-old female who presented with ulcerations on the lower extremities bilaterally. These ulcerations have been present for several months, and have failed to heal appropriately. By appearances, the ulcerations appear to be venous in origin. However, it is noted that the patient has multiple scratches and scrapes throughout all extremities, with multiple Band- Aids in place on all extremities. The patient claims to be clumsy, and indicates that these are all self-inflicted. 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 The appropriate measures relative to the management of chronic venous insufficiency have been discussed with the patient in detail. Patient has been instructed to elevate her lower extremities is much as possible. She is to continue sleeping on a flat mattress at night. She is to elevate her lower extremities during daytime hours as well. Leg elevation is to be to heart level, or higher. The patient has been provided Tubigrip's to be worn on a daily basis. Activity and ambulation have been encouraged. We are to continue the use of collagen hydrogel which will be applied to her ulcerations on a daily basis. The patient has been instructed in the appropriate means of application. A venous duplex examination has been obtained, revealing the saphenofemoral junctions to be incompetent bilaterally, though the great and small saphenous veins are bilaterally competent. The patient has been instructed to maintain a nutritious diet. She has been advised to discontinue her smoking habit. In addition, because she is on chronic steroid therapy for her rheumatoid arthritis, t has been explained that the steroids may delay the wound healing process. Total time: 25 minutes
--- NOTE | 2024-05-26 08:34 | WC ---
PHOTO LEFT LATERAL LE 05/25/24
--- NOTE | 2024-05-26 08:34 | WC ---
PHOTO LLE MEDIAL 05/25/24
--- NOTE | 2024-05-26 08:35 | WC ---
PHOTO RIGHT LATERAL CLUSTER 05/25/24
[2024-06-08 13:31] VITALS: BP 169/100; PULSE 108; RESP 18; TEMP 36.1; BMI 38.2
--- NOTE | 2024-06-08 16:42 | HP.PCM_ITS ---
History of Present Illness Date of Service: 06/08/24 Chief Complaint: Bilateral lower extremity ulcerations History of Wound: This is a 63-year-old female who presented with ulcerations of the calves bilaterally. The ulcerations had been present for several months. She denied a history of prior ulcerations in her legs. She denied a history of thrombophlebitis. She claims to sleep on a flat mattress at night. She is not active. She spends long hours each day sitting idlely. The patient claims that the ulcerations are the result of cuts and scrapes. In other words, she claims that the ulcerations are due to trauma. However, the appearance and distribution is more consistent with venous stasis ulcerations. The patient has recently been treated by other providers using Julián wrap's to the lower extremities and has completed a course of oral Bactrim. The patient denied a history of diabetes mellitus, myocardial infarction, congestive heart failure, cerebrovascular accident, renal disease, pulmonary disease, and thyroid disease. [facility] Medical History Venous stasis ulcer Venous stasis ulcer Chronic venous insufficiency Obesity (BMI 30-39.9) Encounter for smoking cessation counseling Smoker History of smoking Chronic use of steroids History of rheumatoid arthritis Arthritis Home Medications ?Medication ?Instructions ?Recorded ?Last Taken ?Type ropinirole 5 mg tablet 5 mg PO DAILY 04/29/21 Unknown History abatacept 125 mg/mL subcutaneous 125 mg subcut QWEEK 05/18/24 Unknown History syringe (Orencia) duloxetine 30 mg capsule,delayed mg PO 05/18/24 Unknown History release duloxetine 60 mg capsule,delayed 60 mg PO DAILY 05/18/24 Unknown History release nicotine 14 mg/24 hr daily 1 patch topical QHS 05/18/24 Unknown History transdermal patch nicotine 7 mg/24 hr daily 1 patch topical DAILY 05/18/24 Unknown History transdermal patch prednisone 5 mg tablet 10 mg PO BID 05/18/24 Unknown History ropinirole 2 mg tablet 2 mg PO QPM 05/18/24 Unknown History sulfamethoxazole 800 1 tab PO Q12.TCU 05/18/24 Unknown History mg-trimethoprim 160 mg tablet Allergy/AdvReac Type Severity Reaction Status Date / Time No Known Allergies Allergy Verified 05/18/24 13:12 Family History Mother Breast cancer Father Myocardial infarction Surgical History laser surgery on back History of repair of left rotator cuff History of carpal tunnel repair History of hysterectomy Social History Smoking Status: Current every day smoker alcohol intake: current alcohol intake frequency: holidays/special occasions only Alcohol type: beer Vital Signs Vital Signs Vital Signs: 06/08/24 13:31 Temperature 97 F L Temperature Source Temporal Pulse Rate 108 H Respiratory Rate 18 Blood Pressure 169/100 H Blood Pressure Mean 123 Blood Pressure Source Monitor Blood Pressure Position Semi-Fowlers Blood Pressure Location Right Arm Weight Weight: 230 lb Body Mass Index (BMI) 38.2 Physical Exam Const alert, oriented x3, no apparent distress, no limitations, healthy appearing and well nourished Constitutional Narrative: The patient is mildly obese, with a BMI of 38.2. General Appearance: cooperative, comfortable, well kempt and well developed Orientation / Consciousness: awake, oriented to person, oriented to place and oriented to time HEENT normocephalic and head/scalp atraumatic Head and Scalp: normal to inspection, normocephalic and atraumatic Face and Sinus: normal facial exam Nose: external nose normal External Ear: external ears normal Eyes PERRL and EOMs intact bilaterally General Eye: normal appearance of both eyes Neck full ROM Chest inspection of chest normal Resp normal respiratory effort, normal air movement, no retractions, no use of accessory muscles and clear to auscultation bilaterally Effort and Inspection: able to speak in complete sentences Cardio regular rate, regular rhythm, S1 normal heart sound and S2 normal heart sound Extremity no calf tenderness General Extremity: Negative for clubbing or cyanosis Skin Wound Narrative: Minimal swelling is noted in the lower extremities bilaterally. The ulcerations in the right lower extremity are now completely healed and epithelialized. Only 1 ulceration remains in the left lower extremity, located on the left lateral calf. This ulceration has decreased in size, and is generally pink and healthy in appearance, with a small amount of bioburden. Centrally, there is a small depression. The dimensions of the ulceration are documented elsewhere. There is no sign of infection or cellulitis. Hair: normal Neuro oriented x3, CN's II-XII intact bilaterally, moves all extremities and no focal motor deficits Sensorium / Orientation: awake, alert, oriented to person, oriented to place and oriented to time Psych Appearance: grossly normal and appropriate Attitude: calm Activity / Motor Behavior: appropriate eye contact Speech: normal speech Mood & Affect: euthymic mood Thought Process: normal thought process Thought Content: normal thought content Attention / Concentration: attention grossly intact Debridement Note Debridement Note Wound debrided: Left lateral calf Laterality: Left Type of Debridement: Excisional debridement Anesthesia Used: 5% Lidocaine Gel and Cetacaine Depth: Down to and including healthy tissue and in the subcutaneous layer Percentage of wound debrided: 100 Instrument Used: 3mm curette Tissue Removed: Bioburden and nonviable tissue Severity: Fat Layer Exposed Amount of bleeding with debridement: Mild Bleeding Controlled with: Compression and gauze Patient tolerated procedure: Patient tolerated procedure well Post-Debridement Measurements and Additional Note: Post-Debridement Measurements/Treatment - Nurse 1 - General Ulcer Assessment Start: 05/25/24 13:16 Freq: Status: Active Protocol: GAYATHRI Activity Type Activity Date Activity User E-sign Co-sign Detail Recorded Client Recorded Date Recorded By Document 05/25/24 13:18 KW 05/25/24 13:31 KW Document 06/08/24 13:31 RB [id number] 06/08/24 13:44 RB 05/25/24 06/08/24 13:18 13:31 - Today's Visit Information Type of service Follow-up Visit Follow-up Visit (Physician/CLINICAL FIELD SPECIALIST (Physician/CLINICAL FIELD SPECIALIST ) ) Arrival Mode Ambulatory Ambulatory Transfer Assistance None Patient Identification Verified (Name & Yes Yes ) Patient Requires Transmission-Based No Precautions Safety Precautions NA Height and Weight Body Mass Index (BMI) 38.2 38.2 BMI Classification Obese Obese Vital Signs Temperature (97.8 F-99.1 F) 97.4 F L 97 F L Temperature Source Temporal Temporal Pulse Rate (60-100) 95 108 H Pulse Location Monitor Respiratory Rate (12-18) 18 18 Respiratory rate source Observation Observation Oxygen Delivery Method Room Air Blood Pressure (90/60-120/80) 165/101 H 169/100 H Blood Pressure Mean 122 123 Source Monitor Monitor Position Semi-Fowlers Semi-Fowlers Blood Pressure Location Left Arm Right Arm History Since Last Visit- (Skip if this is Patient's initial visit) Have you changed medications since your No No last visit? Any new allergies or adverse reactions No No Had a fall/change in ADL's that may No No increase risk of falls Signs or symptoms of abuse and/or No No neglect since last visit Have you been in the hospital since your No No last visit? Has dressing in place as prescribed Yes Yes Has compression in place as prescribed Yes No Has offloadiing in place as prescribed N/A No Experienced any changes in pain level or No No management Left Footwear Regular Shoe Right Footwear Regular Shoe Pain Scale: 0-10 Numeric Is Patient Pain Free? Yes Yes WC - Nurse 1 - General Ulcer Measurement Start: 05/25/24 13:16 Freq: Status: Active Protocol: Activity Type Activity Date Activity User E-sign Co-sign Detail Recorded Client Recorded Date Recorded By Document 05/25/24 13:18 KW kl 05/25/24 13:31 KW Document 06/08/24 13:31 RB [id number] 06/08/24 13:44 RB 05/25/24 06/08/24 13:18 13:31 Wound Center Nurse 1 #4 RT LAT LE CLUSTER -Combined with other wound No -Current Size (cm) - Length 4.5 0.1 -Current Size (cm) - Width 3.3 0.1 -Current Size (cm) - Depth 0.1 0.1 -Total Square Cm 14.85 0.01 -Date of Last Picture (Recall this 05/25/24 field) -Photo Taken Yes -Tunneling No -Undermining/Tunneling No -Circular Undermining No -Exudate Amt Medium Small -Exudate Type Serosanguineous Serosanguineous -Wound Margin Distinct, Distinct, Outline Outline Attached Attached -Granulation Amt Large (67-100%) Medium (34-66%) -Granulation Quality [place] -Slough/Fibrin Yes -Necrosis Amt Small (1-33%) Small (1-33%) -Necrotic Tissue Type Adherent Slough Adherent Slough -Structure Exposed N/A -Texture ([place]-wound Skin Appearance) Assessed Assessed -Moisture ([place]-wound Skin Appearance) Assessed Assessed -Color ([place]-wound Skin Appearance) Assessed, Assessed Erythema -Temperature ([place]-wound Skin No Abnormality No Abnormality Appearance) (Pt Warm) (Pt Warm) -Tenderness on Palpation ([place]-wound No No Skin Appearance) -Ulcer Cleansing Rinsed/ Rinsed/ Irrigated with Irrigated with Saline Saline -Foul Odor after Cleansing No No -Anesthetic Used 5% Lidocaine Gel #3 LT MED LE -Combined with other wound No -Current Size (cm) - Length 0.6 0.1 -Current Size (cm) - Width 1 0.1 -Current Size (cm) - Depth 0.2 0.1 -Total Square Cm 0.6 0.01 -Date of Last Picture (Recall this 05/25/24 field) -Photo Taken Yes -Tunneling No -Undermining/Tunneling No -Circular Undermining No -Exudate Amt Small Small -Exudate Type Serosanguineous Sanguineous -Wound Margin Distinct, Distinct, Outline Outline Attached Attached -Granulation Amt Large (67-100%) Medium (34-66%) -Granulation Quality [place] -Slough/Fibrin Yes -Necrosis Amt Small (1-33%) -Necrotic Tissue Type Adherent Slough -Structure Exposed N/A -Texture ([place]-wound Skin Appearance) Assessed Assessed -Moisture ([place]-wound Skin Appearance) Assessed Assessed -Color ([place]-wound Skin Appearance) Assessed, Assessed Erythema -Temperature ([place]-wound Skin No Abnormality No Abnormality Appearance) (Pt Warm) (Pt Warm) -Tenderness on Palpation ([place]-wound No No Skin Appearance) -Ulcer Cleansing Rinsed/ Rinsed/ Irrigated with Irrigated with Saline Saline -Foul Odor after Cleansing No No -Anesthetic Used 5% Lidocaine Gel #1 LT LAT SUPERIOR LE -Combined with other wound No -Current Size (cm) - Length 1 0.1 -Current Size (cm) - Width 0.9 0.1 -Current Size (cm) - Depth 0.1 0.1 -Total Square Cm 0.9 0.01 -Date of Last Picture (Recall this 05/25/24 field) -Photo Taken Yes -Tunneling No -Undermining/Tunneling No -Circular Undermining No -Exudate Amt Small Small -Exudate Type Serosanguineous Sanguineous -Wound Margin Distinct, Outline Attached -Granulation Amt Large (67-100%) Medium (34-66%) -Granulation Quality [place] -Slough/Fibrin Yes -Necrosis Amt Small (1-33%) Small (1-33%) -Necrotic Tissue Type Adherent Slough Adherent Slough -Structure Exposed N/A -Texture ([place]-wound Skin Appearance) Assessed Assessed -Moisture ([place]-wound Skin Appearance) Assessed Assessed -Color ([place]-wound Skin Appearance) Assessed, Assessed Erythema -Temperature ([place]-wound Skin No Abnormality No Abnormality Appearance) (Pt Warm) (Pt Warm) -Tenderness on Palpation ([place]-wound No No Skin Appearance) -Ulcer Cleansing Rinsed/ Rinsed/ Irrigated with Irrigated with Saline Saline -Foul Odor after Cleansing No No -Anesthetic Used 5% Lidocaine Gel #2 LT LAT INFERIOR LE -Combined with other wound No -Current Size (cm) - Length 2.1 1 -Current Size (cm) - Width 1.2 0.6 -Current Size (cm) - Depth 0.4 0.4 -Total Square Cm 2.52 0.6 -Date of Last Picture (Recall this 05/25/24 field) -Photo Taken Yes -Tunneling No -Undermining/Tunneling No -Circular Undermining No -Exudate Amt Medium Medium -Exudate Type Serosanguineous Serosanguineous -Wound Margin Distinct, Distinct, Outline Outline Attached Attached -Granulation Amt Large (67-100%) Medium (34-66%) -Granulation Quality [place] -Slough/Fibrin Yes -Necrosis Amt Small (1-33%) Small (1-33%) -Necrotic Tissue Type Adherent Slough Adherent Slough -Structure Exposed N/A -Texture ([place]-wound Skin Appearance) Assessed Assessed -Moisture ([place]-wound Skin Appearance) Assessed Assessed -Color ([place]-wound Skin Appearance) Assessed, Assessed Erythema -Temperature ([place]-wound Skin No Abnormality No Abnormality Appearance) (Pt Warm) (Pt Warm) -Tenderness on Palpation ([place]-wound No Skin Appearance) -Ulcer Cleansing Rinsed/ Rinsed/ Irrigated with Irrigated with Saline Saline -Foul Odor after Cleansing No No -Anesthetic Used 5% Lidocaine 5% Lidocaine Gel Gel Lower Limb Edema Present Yes Right Calf (cm) 41 Right Ankle (cm) 23.2 Left Calf (cm) 39.5 Left Ankle (cm) 23 WC - Nurse 2 - General Ulcer CM Notes Start: 05/25/24 13:16 Freq: Status: Active Protocol: Activity Type Activity Date Activity User E-sign Co-sign Detail Recorded Client Recorded Date Recorded By Document 05/25/24 13:41 DS 1 05/25/24 13:49 DS Document 06/08/24 13:56 [id number] 06/08/24 14:00 JF 05/25/24 06/08/24 13:41 13:56 Wound Center Nurse 2 #4 RT LAT LE CLUSTER -Time 13:15 -Correct Patient Yes No -Correct Side, Site, Position Yes No -Correct Procedure Yes No -Procedure Performed Yes No -Type of Procedure Debridement -Clinical Debridement Subcutaneous -Tissue Removed Epidermis, Subcutaneous -Post Debridement (cm) - Length 4.4 0 -Post Debridement (cm) - Width 1.6 0 -Post Debridement (cm) - Depth 0.1 0 -Total Square (Post) (cm) 7.04 0 -Area of Debridement (cm) - Length 4.4 0 -Area of Debridement (cm) - Width 1.6 0 -Total Square (Area) (cm) 7.04 0 -Tunneling No -Undermining/Tunneling No -Circular Undermining No -Wound/Ulcer Outcome Not Healed Healed- Epithelialized -Bleeding Controlled with Pressure -Treatment Response Procedure Tolerated Well -Debridement - Subq, 1st 20sq cm No #3 LT MED LE -Time 13:15 -Correct Patient Yes No -Correct Side, Site, Position Yes No -Correct Procedure Yes No -Procedure Performed Yes No -Type of Procedure Debridement -Clinical Debridement Subcutaneous -Tissue Removed Subcutaneous -Post Debridement (cm) - Length 0.8 0 -Post Debridement (cm) - Width 1.0 0 -Post Debridement (cm) - Depth 0.1 0 -Total Square (Post) (cm) 0.80 0 -Area of Debridement (cm) - Length 0.8 0 -Area of Debridement (cm) - Width 1.0 0 -Total Square (Area) (cm) 0.80 0 -Tunneling No -Undermining/Tunneling No -Circular Undermining No -Wound/Ulcer Outcome Not Healed Healed- Epithelialized -Ulcer Cleansing Rinsed/ Irrigated with Saline -Bleeding Controlled with Pressure -Treatment Response Procedure Tolerated Well -Debridement - Subq, 1st 20sq cm No #1 LT LAT SUPERIOR LE -Time 13:15 -Correct Patient Yes No -Correct Side, Site, Position Yes No -Correct Procedure Yes No -Procedure Performed Yes No -Type of Procedure Debridement -Clinical Debridement Subcutaneous -Tissue Removed Subcutaneous -Post Debridement (cm) - Length 1.0 0 -Post Debridement (cm) - Width 0.6 0 -Post Debridement (cm) - Depth 0.4 0 -Total Square (Post) (cm) 0.60 0 -Area of Debridement (cm) - Length 1.0 0 -Area of Debridement (cm) - Width 0.6 0 -Total Square (Area) (cm) 0.60 0 -Tunneling No -Undermining/Tunneling No -Circular Undermining No -Wound/Ulcer Outcome Not Healed Healed- Epithelialized -Bleeding Controlled with Pressure -Treatment Response Procedure Tolerated Well -Debridement - Subq, 1st 20sq cm Yes #2 LT LAT INFERIOR LE -Time 13:15 13:58 -Correct Patient Yes Yes -Correct Side, Site, Position Yes Yes -Correct Procedure Yes Yes -Procedure Performed Yes Yes -Type of Procedure Debridement Debridement -Clinical Debridement Subcutaneous Subcutaneous -Tissue Removed Subcutaneous Subcutaneous -Post Debridement (cm) - Length 1.5 1.3 -Post Debridement (cm) - Width 1.4 0.8 -Post Debridement (cm) - Depth 0.1 0.4 -Total Square (Post) (cm) 2.10 1.04 -Area of Debridement (cm) - Length 1.5 1.3 -Area of Debridement (cm) - Width 1.4 0.8 -Total Square (Area) (cm) 2.10 1.04 -Tunneling No No -Undermining/Tunneling No No -Circular Undermining No No -Wound/Ulcer Outcome Not Healed Not Healed -Ulcer Cleansing Rinsed/ Irrigated with Saline -Foul Odor after Cleansing No -Bioengineered Tissue No -Bleeding Controlled with Pressure Pressure -Treatment Response Procedure Procedure Tolerated Well Tolerated Well -Offloading No -Debridement - Subq, 1st 20sq cm No Yes Pain Scale: 0-10 Numeric Is Patient Pain Free? Yes Yes - Nurse 3 - General Ulcer D/C NN Start: 05/25/24 13:16 Freq: Status: Active Protocol: Activity Type Activity Date Activity User E-sign Co-sign Detail Recorded Client Recorded Date Recorded By Document 05/25/24 14:52 KW stephen 05/25/24 14:52 KW Document 06/08/24 14:10 RB [id number] 06/08/24 14:11 RB 05/25/24 06/08/24 14:52 14:10 Wound Care Center Nurse 3 #4 RT LAT LE CLUSTER -Other Dressing HYDROGEL -Primary Dressing Covered/Secured with Dry Gauze & Roll Gauze, Secured with Tape #3 LT MED LE -Other Dressing HYDROGEL -Primary Dressing Covered/Secured with Dry Gauze & Roll Gauze, Secured with Tape #1 LT LAT SUPERIOR LE -Other Dressing HYDROGEL -Primary Dressing Covered/Secured with Dry Gauze #2 LT LAT INFERIOR LE -Ulcer Cleansing Rinsed/ Irrigated with Saline -Primary Dressing Applied Promogran Mariana Matter -Other Dressing HYDROGEL -Primary Dressing Covered/Secured with Dry Gauze Dry Gauze, Secured with Tape -Promogran Mariana Matter 2 Right -Tubular Bandage Single Layer -Size of Tubigrip Used Size F -Size F ($) 1 -Other tubigrip single Left -Tubular Bandage Single Layer -Size of Tubigrip Used Size F -Size F ($) 1 -Other tubigrip single Treatment Response Procedure Tolerated Well Pain Scale: 0-10 Numeric Is Patient Pain Free? Yes Yes WC - Visit Discharge Discharge Condition Stable Ambulatory Status Ambulatory Transportation Private Auto Medication Reconcilliation completed & No provided to patient/care provider Clinical Summary of Care Provided Yes Charges/Coding Procedures Integumentary [id number]: [id number] Angelic subq tissue 20 sq cm/< Assessment/Plan Assessment/Plan (1) Venous stasis ulcer: CODE(S): I83.009 - Varicose veins of unspecified lower extremity with ulcer of unspecified site; L97.909 - Non-pressure chronic ulcer of unspecified part of unspecified lower leg with unspecified severity QUALIFIERS: Venous stasis ulcer site: calf Varicose vein presence: with varicose veins Laterality: right Non-pressure ulcer stage: with fat layer exposed Qualified Code(s): I83.012 - Varicose veins of right lower extremity with ulcer of calf; L97.212 - Non-pressure chronic ulcer of right calf with fat layer exposed (2) Venous stasis ulcer: CODE(S): I83.009 - Varicose veins of unspecified lower extremity with ulcer of unspecified site; L97.909 - Non-pressure chronic ulcer of unspecified part of unspecified lower leg with unspecified severity QUALIFIERS: Venous stasis ulcer site: calf Varicose vein presence: with varicose veins Laterality: left Non-pressure ulcer stage: with fat layer exposed Qualified Code(s): I83.022 - Varicose veins of left lower extremity with ulcer of calf; L97.222 - Non-pressure chronic ulcer of left calf with fat layer exposed (3) Chronic venous insufficiency: CODE(S): I87.2 - Venous insufficiency (chronic) (peripheral) (4) Chronic use of steroids: (5) Smoker: CODE(S): F17.200 - Nicotine dependence, unspecified, uncomplicated (6) History of smoking: CODE(S): Z87.891 - Personal history of nicotine dependence (7) Encounter for smoking cessation counseling: CODE(S): Z71.6 - Tobacco abuse counseling (8) History of rheumatoid arthritis: CODE(S): Z87.39 - Personal history of other diseases of the musculoskeletal system and connective tissue (9) Obesity (BMI 30-39.9): CODE(S): E66.9 - Obesity, unspecified (10) History of carpal tunnel repair: CODE(S): Z98.890 - Other specified postprocedural states (11) History of repair of left rotator cuff: CODE(S): Z98.890 - Other specified postprocedural states PLAN: Plan This is a 63-year-old female who presented with ulcerations on the lower extremities bilaterally. These ulcerations had been present for several months, and had failed to heal appropriately. By appearances, the ulcerations appear to be venous in origin. However, it was noted that the patient had multiple scratches and scrapes throughout all extremities, with multiple Band-Aids in place on all extremities. The patient claims to be clumsy, and insisted that these were all self-inflicted. 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 The appropriate measures relative to the management of chronic venous insufficiency have been discussed with the patient in detail. The patient has been instructed to elevate her lower extremities is much as possible. She is to continue sleeping on a flat mattress at night. She is to elevate her lower extremities during daytime hours as well. Leg elevation is to be to heart level, or higher. The patient has been provided Tubigrip's to be worn on a daily basis. Activity and ambulation have been encouraged. We are to transition to the use of Mariana, which will be applied topically on a daily basis. The patient has been instructed in the appropriate means of application. A venous duplex examination has been obtained, revealing the saphenofemoral junctions to be incompetent bilaterally, though the great and small saphenous veins are bilaterally competent. The patient has been instructed to maintain a nutritious diet. She has been advised to discontinue her smoking habit. In addition, because she is on chronic steroid therapy for her rheumatoid arthritis, it has been explained that the steroids may delay the wound healing process. Total time: 24 minutes
--- NOTE | 2024-06-10 13:20 | WC ---
PHOTO 06/08/24 LEFT LATERAL INF LE
--- NOTE | 2024-06-10 13:36 | WC ---
PHOTO LEFT LATERAL SUPERIOR LE 06/08/24
--- NOTE | 2024-06-10 13:39 | WC ---
PHOTO 06/08/24 LEFT MEDIAL LE
[2024-06-15 13:21] VITALS: BP 141/103; PULSE 93; RESP 18; TEMP 35.9; BMI 38.2
--- NOTE | 2024-06-15 13:52 | HP.PCM_ITS ---
History of Present Illness Date of Service: 06/15/24 Chief Complaint: Bilateral lower extremity ulcerations History of Wound: This is a 63-year-old female who presented with ulcerations of the calves bilaterally. The ulcerations had been present for several months. She denied a history of prior ulcerations in her legs. She denied a history of thrombophlebitis. She claims to sleep on a flat mattress at night. She is not active. She spends long hours each day sitting idlely. The patient claims that the ulcerations are the result of cuts and scrapes. In other words, she claims that the ulcerations are due to trauma. She states I tend to bump into things. She also blames some of the scrapes and scratches on her dog. The patient has recently been treated by other providers using Julián wrap's to the lower extremities and has completed a course of oral Bactrim. The patient denied a history of diabetes mellitus, myocardial infarction, congestive heart failure, cerebrovascular accident, renal disease, pulmonary disease, and thyroid disease. [facility] Medical History Venous stasis ulcer Venous stasis ulcer Chronic venous insufficiency Obesity (BMI 30-39.9) Encounter for smoking cessation counseling Smoker History of smoking Chronic use of steroids History of rheumatoid arthritis Arthritis Home Medications ?Medication ?Instructions ?Recorded ?Last Taken ?Type ropinirole 5 mg tablet 5 mg PO DAILY 04/29/21 Unknown History abatacept 125 mg/mL subcutaneous 125 mg subcut QWEEK 05/18/24 Unknown History syringe (Orencia) duloxetine 30 mg capsule,delayed mg PO 05/18/24 Unknown History release duloxetine 60 mg capsule,delayed 60 mg PO DAILY 05/18/24 Unknown History release nicotine 14 mg/24 hr daily 1 patch topical QHS 05/18/24 Unknown History transdermal patch nicotine 7 mg/24 hr daily 1 patch topical DAILY 05/18/24 Unknown History transdermal patch prednisone 5 mg tablet 10 mg PO BID 05/18/24 Unknown History ropinirole 2 mg tablet 2 mg PO QPM 05/18/24 Unknown History sulfamethoxazole 800 1 tab PO Q12.TCU 05/18/24 Unknown History mg-trimethoprim 160 mg tablet Allergy/AdvReac Type Severity Reaction Status Date / Time No Known Allergies Allergy Verified 07/30/24 13:12 Family History Mother Breast cancer Father Myocardial infarction Surgical History laser surgery on back History of repair of left rotator cuff History of carpal tunnel repair History of hysterectomy Social History Smoking Status: Current every day smoker alcohol intake: current alcohol intake frequency: holidays/special occasions only Alcohol type: beer Vital Signs Vital Signs Vital Signs: 06/15/24 13:21 Temperature 96.6 F L Temperature Source Temporal Pulse Rate 93 Respiratory Rate 18 Blood Pressure 141/103 H Blood Pressure Mean 115 Blood Pressure Source Monitor Blood Pressure Position Semi-Fowlers Blood Pressure Location Left Arm Weight Weight: 230 lb Body Mass Index (BMI) 38.2 Physical Exam Const alert, oriented x3, no apparent distress, no limitations, healthy appearing and well nourished Constitutional Narrative: The patient is mildly obese, with a BMI of 38.2. General Appearance: cooperative, comfortable, well kempt and well developed Orientation / Consciousness: awake, oriented to person, oriented to place and oriented to time HEENT normocephalic and head/scalp atraumatic Head and Scalp: normal to inspection, normocephalic and atraumatic Face and Sinus: normal facial exam Nose: external nose normal External Ear: external ears normal Eyes PERRL and EOMs intact bilaterally General Eye: normal appearance of both eyes Neck full ROM Chest inspection of chest normal Resp normal respiratory effort, normal air movement, no retractions, no use of accessory muscles and clear to auscultation bilaterally Effort and Inspection: able to speak in complete sentences Cardio regular rate, regular rhythm, S1 normal heart sound and S2 normal heart sound Extremity no calf tenderness General Extremity: Negative for clubbing or cyanosis Skin Wound Narrative: Minimal swelling is noted in the lower extremities bilaterally. The ulcerations in the right lower extremity are now completely healed and epithelialized. Only 1 ulceration remains in the left lower extremity, located on the left lateral calf. This ulceration has decreased in size, and is generally pink and healthy in appearance, with a small amount of bioburden. Active granulation tissue is noted. Centrally, there is a small depression. The dimensions of the ulceration are documented elsewhere. There is no sign of infection or cellulitis. Multiple healing scrapes and scratches are noted in the patient's lower extremities bilaterally. Hair: normal Neuro oriented x3, CN's II-XII intact bilaterally, moves all extremities and no focal motor deficits Sensorium / Orientation: awake, alert, oriented to person, oriented to place and oriented to time Psych Appearance: grossly normal and appropriate Attitude: calm Activity / Motor Behavior: appropriate eye contact Speech: normal speech Mood & Affect: euthymic mood Thought Process: normal thought process Thought Content: normal thought content Attention / Concentration: attention grossly intact Debridement Note Debridement Note Wound debrided: Left lateral calf Laterality: Left Type of Debridement: Excisional debridement Anesthesia Used: 5% Lidocaine Gel and Cetacaine Depth: Down to and including healthy tissue and in the subcutaneous layer Percentage of wound debrided: 100 Instrument Used: 3mm curette Tissue Removed: Bioburden and nonviable tissue Severity: Fat Layer Exposed Amount of bleeding with debridement: Mild Bleeding Controlled with: Compression and gauze Patient tolerated procedure: Patient tolerated procedure well Post-Debridement Measurements and Additional Note: Post-Debridement Measurements/Treatment - Nurse 1 - General Ulcer Assessment Start: 05/25/24 13:16 Freq: Status: Active Protocol: .SABRINA Activity Type Activity Date Activity User E-sign Co-sign Detail Recorded Client Recorded Date Recorded By Document 05/25/24 13:18 [facility] 05/25/24 13:31 Document 06/08/24 13:31 RB [id number] 06/08/24 13:44 RB Document 06/15/24 13:21 RB [id number] 06/15/24 13:27 RB 05/25/24 06/08/24 06/15/24 13:18 13:31 13:21 - Today's Visit Information Type of service Follow-up Visit Follow-up Visit Follow-up Visit (Physician/FRUIT HARVEST WORKER (Physician/FRUIT HARVEST WORKER (Physician/FRUIT HARVEST WORKER ) ) ) Arrival Mode Ambulatory Ambulatory Ambulatory Transfer Assistance None None Patient Identification Verified (Name & Yes Yes Yes ) Patient Requires Transmission-Based No No Precautions Safety Precautions NA Height and Weight Body Mass Index (BMI) 38.2 38.2 38.2 BMI Classification Obese Obese Obese Vital Signs Temperature (97.8 F-99.1 F) 97.4 F L 97 F L 96.6 F L Temperature Source Temporal Temporal Temporal Pulse Rate (60-100) 95 108 H 93 Pulse Location Monitor Monitor Respiratory Rate (12-18) 18 18 18 Respiratory rate source Observation Observation Observation Oxygen Delivery Method Room Air Blood Pressure (90/60-120/80) 165/101 H 169/100 H 141/103 H Blood Pressure Mean 122 123 115 Source Monitor Monitor Monitor Position Semi-Fowlers Semi-Fowlers Semi-Fowlers Blood Pressure Location Left Arm Right Arm Left Arm History Since Last Visit- (Skip if this is Patient's initial visit) Have you changed medications since your No No No last visit? Any new allergies or adverse reactions No No No Had a fall/change in ADL's that may No No No increase risk of falls Signs or symptoms of abuse and/or No No No neglect since last visit Have you been in the hospital since your No No No last visit? Has dressing in place as prescribed Yes Yes Yes Has compression in place as prescribed Yes No No Has offloadiing in place as prescribed N/A No No Experienced any changes in pain level or No No No management Left Footwear Regular Shoe Right Footwear Regular Shoe Pain Scale: 0-10 Numeric Is Patient Pain Free? Yes Yes Yes WC - Nurse 1 - General Ulcer Measurement Start: 05/25/24 13:16 Freq: Status: Active Protocol: Activity Type Activity Date Activity User E-sign Co-sign Detail Recorded Client Recorded Date Recorded By Document 05/25/24 13:18 KW kl 05/25/24 13:31 Document 06/08/24 13:31 RB [id number] 06/08/24 13:44 RB Document 06/15/24 13:21 RB [id number] 06/15/24 13:27 RB 05/25/24 06/08/24 06/15/24 13:18 13:31 13:21 Wound Center Nurse 1 #4 RT LAT LE CLUSTER -Combined with other wound No -Current Size (cm) - Length 4.5 0.1 -Current Size (cm) - Width 3.3 0.1 -Current Size (cm) - Depth 0.1 0.1 -Total Square Cm 14.85 0.01 -Date of Last Picture (Recall this 05/25/24 field) -Photo Taken Yes -Tunneling No -Undermining/Tunneling No -Circular Undermining No -Exudate Amt Medium Small -Exudate Type Serosanguineous Serosanguineous -Wound Margin Distinct, Distinct, Outline Outline Attached Attached -Granulation Amt Large (67-100%) Medium (34-66%) -Granulation Quality [place] -Slough/Fibrin Yes -Necrosis Amt Small (1-33%) Small (1-33%) -Necrotic Tissue Type Adherent Slough Adherent Slough -Structure Exposed N/A -Texture ([place]-wound Skin Appearance) Assessed Assessed -Moisture ([place]-wound Skin Appearance) Assessed Assessed -Color ([place]-wound Skin Appearance) Assessed, Assessed Erythema -Temperature ([place]-wound Skin No Abnormality No Abnormality Appearance) (Pt Warm) (Pt Warm) -Tenderness on Palpation ([place]-wound No No Skin Appearance) -Ulcer Cleansing Rinsed/ Rinsed/ Irrigated with Irrigated with Saline Saline -Foul Odor after Cleansing No No -Anesthetic Used 5% Lidocaine Gel #3 LT MED LE -Combined with other wound No -Current Size (cm) - Length 0.6 0.1 -Current Size (cm) - Width 1 0.1 -Current Size (cm) - Depth 0.2 0.1 -Total Square Cm 0.6 0.01 -Date of Last Picture (Recall this 05/25/24 field) -Photo Taken Yes -Tunneling No -Undermining/Tunneling No -Circular Undermining No -Exudate Amt Small Small -Exudate Type Serosanguineous Sanguineous -Wound Margin Distinct, Distinct, Outline Outline Attached Attached -Granulation Amt Large (67-100%) Medium (34-66%) -Granulation Quality [place] -Slough/Fibrin Yes -Necrosis Amt Small (1-33%) -Necrotic Tissue Type Adherent Slough -Structure Exposed N/A -Texture ([place]-wound Skin Appearance) Assessed Assessed -Moisture ([place]-wound Skin Appearance) Assessed Assessed -Color ([place]-wound Skin Appearance) Assessed, Assessed Erythema -Temperature ([place]-wound Skin No Abnormality No Abnormality Appearance) (Pt Warm) (Pt Warm) -Tenderness on Palpation ([place]-wound No No Skin Appearance) -Ulcer Cleansing Rinsed/ Rinsed/ Irrigated with Irrigated with Saline Saline -Foul Odor after Cleansing No No -Anesthetic Used 5% Lidocaine Gel #1 LT LAT SUPERIOR LE -Combined with other wound No -Current Size (cm) - Length 1 0.1 -Current Size (cm) - Width 0.9 0.1 -Current Size (cm) - Depth 0.1 0.1 -Total Square Cm 0.9 0.01 -Date of Last Picture (Recall this 05/25/24 field) -Photo Taken Yes -Tunneling No -Undermining/Tunneling No -Circular Undermining No -Exudate Amt Small Small -Exudate Type Serosanguineous Sanguineous -Wound Margin Distinct, Outline Attached -Granulation Amt Large (67-100%) Medium (34-66%) -Granulation Quality [place] -Slough/Fibrin Yes -Necrosis Amt Small (1-33%) Small (1-33%) -Necrotic Tissue Type Adherent Slough Adherent Slough -Structure Exposed N/A -Texture ([place]-wound Skin Appearance) Assessed Assessed -Moisture ([place]-wound Skin Appearance) Assessed Assessed -Color ([place]-wound Skin Appearance) Assessed, Assessed Erythema -Temperature ([place]-wound Skin No Abnormality No Abnormality Appearance) (Pt Warm) (Pt Warm) -Tenderness on Palpation ([place]-wound No No Skin Appearance) -Ulcer Cleansing Rinsed/ Rinsed/ Irrigated with Irrigated with Saline Saline -Foul Odor after Cleansing No No -Anesthetic Used 5% Lidocaine Gel #2 LT LAT INFERIOR LE -Combined with other wound No No -Current Size (cm) - Length 2.1 1 0.8 -Current Size (cm) - Width 1.2 0.6 0.5 -Current Size (cm) - Depth 0.4 0.4 0.2 -Total Square Cm 2.52 0.6 0.40 -Date of Last Picture (Recall this 05/25/24 field) -Photo Taken Yes -Tunneling No No -Undermining/Tunneling No No -Circular Undermining No No -Exudate Amt Medium Medium Medium -Exudate Type Serosanguineous Serosanguineous Serosanguineous -Wound Margin Distinct, Distinct, Distinct, Outline Outline Outline Attached Attached Attached -Granulation Amt Large (67-100%) Medium (34-66%) Large (67-100%) -Granulation Quality [place] -Slough/Fibrin Yes Yes -Necrosis Amt Small (1-33%) Small (1-33%) Small (1-33%) -Necrotic Tissue Type Adherent Slough Adherent Slough Adherent Slough -Structure Exposed N/A N/A -Texture ([place]-wound Skin Appearance) Assessed Assessed Assessed -Moisture ([place]-wound Skin Appearance) Assessed Assessed Assessed -Color ([place]-wound Skin Appearance) Assessed, Assessed Assessed Erythema -Temperature ([place]-wound Skin No Abnormality No Abnormality No Abnormality Appearance) (Pt Warm) (Pt Warm) (Pt Warm) -Tenderness on Palpation ([place]-wound No No Skin Appearance) -Ulcer Cleansing Rinsed/ Rinsed/ Wound Cleanser Irrigated with Irrigated with Saline Saline -Foul Odor after Cleansing No No No -Anesthetic Used 5% Lidocaine 5% Lidocaine 5% Lidocaine Gel Gel Gel Lower Limb Edema Present Yes Right Calf (cm) 41 Right Ankle (cm) 23.2 Left Calf (cm) 39.5 Left Ankle (cm) 23 WC - Nurse 2 - General Ulcer CM Notes Start: 05/25/24 13:16 Freq: Status: Active Protocol: Activity Type Activity Date Activity User E-sign Co-sign Detail Recorded Client Recorded Date Recorded By Document 05/25/24 13:41 DS 1 05/25/24 13:49 DS Document 06/08/24 13:56 [id number] 06/08/24 14:00 Document 06/15/24 13:40 DS [id number] 06/15/24 13:43 DS 05/25/24 06/08/24 06/15/24 13:41 13:56 13:40 Wound Center Nurse 2 #4 RT LAT LE CLUSTER -Time 13:15 -Correct Patient Yes No -Correct Side, Site, Position Yes No -Correct Procedure Yes No -Procedure Performed Yes No -Type of Procedure Debridement -Clinical Debridement Subcutaneous -Tissue Removed Epidermis, Subcutaneous -Post Debridement (cm) - Length 4.4 0 -Post Debridement (cm) - Width 1.6 0 -Post Debridement (cm) - Depth 0.1 0 -Total Square (Post) (cm) 7.04 0 -Area of Debridement (cm) - Length 4.4 0 -Area of Debridement (cm) - Width 1.6 0 -Total Square (Area) (cm) 7.04 0 -Tunneling No -Undermining/Tunneling No -Circular Undermining No -Wound/Ulcer Outcome Not Healed Healed- Epithelialized -Bleeding Controlled with Pressure -Treatment Response Procedure Tolerated Well -Debridement - Subq, 1st 20sq cm No #3 LT MED LE -Time 13:15 -Correct Patient Yes No -Correct Side, Site, Position Yes No -Correct Procedure Yes No -Procedure Performed Yes No -Type of Procedure Debridement -Clinical Debridement Subcutaneous -Tissue Removed Subcutaneous -Post Debridement (cm) - Length 0.8 0 -Post Debridement (cm) - Width 1.0 0 -Post Debridement (cm) - Depth 0.1 0 -Total Square (Post) (cm) 0.80 0 -Area of Debridement (cm) - Length 0.8 0 -Area of Debridement (cm) - Width 1.0 0 -Total Square (Area) (cm) 0.80 0 -Tunneling No -Undermining/Tunneling No -Circular Undermining No -Wound/Ulcer Outcome Not Healed Healed- Epithelialized -Ulcer Cleansing Rinsed/ Irrigated with Saline -Bleeding Controlled with Pressure -Treatment Response Procedure Tolerated Well -Debridement - Subq, 1st 20sq cm No #1 LT LAT SUPERIOR LE -Time 13:15 -Correct Patient Yes No -Correct Side, Site, Position Yes No -Correct Procedure Yes No -Procedure Performed Yes No -Type of Procedure Debridement -Clinical Debridement Subcutaneous -Tissue Removed Subcutaneous -Post Debridement (cm) - Length 1.0 0 -Post Debridement (cm) - Width 0.6 0 -Post Debridement (cm) - Depth 0.4 0 -Total Square (Post) (cm) 0.60 0 -Area of Debridement (cm) - Length 1.0 0 -Area of Debridement (cm) - Width 0.6 0 -Total Square (Area) (cm) 0.60 0 -Tunneling No -Undermining/Tunneling No -Circular Undermining No -Wound/Ulcer Outcome Not Healed Healed- Epithelialized -Bleeding Controlled with Pressure -Treatment Response Procedure Tolerated Well -Debridement - Subq, 1st 20sq cm Yes #2 LT LAT INFERIOR LE -Time 13:15 13:58 13:40 -Correct Patient Yes Yes Yes -Correct Side, Site, Position Yes Yes Yes -Correct Procedure Yes Yes Yes -Procedure Performed Yes Yes Yes -Type of Procedure Debridement Debridement Debridement -Clinical Debridement Subcutaneous Subcutaneous Subcutaneous -Tissue Removed Subcutaneous Subcutaneous Subcutaneous -Post Debridement (cm) - Length 1.5 1.3 0.9 -Post Debridement (cm) - Width 1.4 0.8 0.6 -Post Debridement (cm) - Depth 0.1 0.4 0.4 -Total Square (Post) (cm) 2.10 1.04 0.54 -Area of Debridement (cm) - Length 1.5 1.3 0.9 -Area of Debridement (cm) - Width 1.4 0.8 0.6 -Total Square (Area) (cm) 2.10 1.04 0.54 -Tunneling No No No -Undermining/Tunneling No No No -Circular Undermining No No No -Wound/Ulcer Outcome Not Healed Not Healed Not Healed -Ulcer Cleansing Rinsed/ Irrigated with Saline -Foul Odor after Cleansing No -Bioengineered Tissue No -Bleeding Controlled with Pressure Pressure Pressure -Treatment Response Procedure Procedure Procedure Tolerated Well Tolerated Well Tolerated Well -Offloading No -Debridement - Subq, 1st 20sq cm No Yes Yes Pain Scale: 0-10 Numeric Is Patient Pain Free? Yes Yes Yes - Nurse 3 - General Ulcer D/C NN Start: 05/25/24 13:16 Freq: Status: Active Protocol: Activity Type Activity Date Activity User E-sign Co-sign Detail Recorded Client Recorded Date Recorded By Document 05/25/24 14:52 [facility] 05/25/24 14:52 Document 06/08/24 14:10 RB [id number] 06/08/24 14:11 RB 05/25/24 06/08/24 14:52 14:10 Wound Care Center Nurse 3 #4 RT LAT LE CLUSTER -Other Dressing HYDROGEL -Primary Dressing Covered/Secured with Dry Gauze & Roll Gauze, Secured with Tape #3 LT MED LE -Other Dressing HYDROGEL -Primary Dressing Covered/Secured with Dry Gauze & Roll Gauze, Secured with Tape #1 LT LAT SUPERIOR LE -Other Dressing HYDROGEL -Primary Dressing Covered/Secured with Dry Gauze #2 LT LAT INFERIOR LE -Ulcer Cleansing Rinsed/ Irrigated with Saline -Primary Dressing Applied Promogran Mariana Matter -Other Dressing HYDROGEL -Primary Dressing Covered/Secured with Dry Gauze Dry Gauze, Secured with Tape -Promogran Mariana Matter 2 Right -Tubular Bandage Single Layer -Size of Tubigrip Used Size F -Size F ($) 1 -Other tubigrip single Left -Tubular Bandage Single Layer -Size of Tubigrip Used Size F -Size F ($) 1 -Other tubigrip single Treatment Response Procedure Tolerated Well Pain Scale: 0-10 Numeric Is Patient Pain Free? Yes Yes - Visit Discharge Discharge Condition Stable Ambulatory Status Ambulatory Transportation Private Auto Medication Reconcilliation completed & No provided to patient/care provider Clinical Summary of Care Provided Yes Charges/Coding Procedures Integumentary [id number]: [id number] Angelic subq tissue 20 sq cm/< Assessment/Plan Assessment/Plan (1) Venous stasis ulcer: CODE(S): I83.009 - Varicose veins of unspecified lower extremity with ulcer of unspecified site; L97.909 - Non-pressure chronic ulcer of unspecified part of unspecified lower leg with unspecified severity QUALIFIERS: Venous stasis ulcer site: calf Varicose vein presence: with varicose veins Laterality: right Non-pressure ulcer stage: with fat layer exposed Qualified Code(s): I83.012 - Varicose veins of right lower extremity with ulcer of calf; L97.212 - Non-pressure chronic ulcer of right calf with fat layer exposed (2) Venous stasis ulcer: CODE(S): I83.009 - Varicose veins of unspecified lower extremity with ulcer of unspecified site; L97.909 - Non-pressure chronic ulcer of unspecified part of unspecified lower leg with unspecified severity QUALIFIERS: Venous stasis ulcer site: calf Varicose vein presence: with varicose veins Laterality: left Non-pressure ulcer stage: with fat layer exposed Qualified Code(s): I83.022 - Varicose veins of left lower extremity with ulcer of calf; L97.222 - Non-pressure chronic ulcer of left calf with fat layer exposed (3) Chronic venous insufficiency: CODE(S): I87.2 - Venous insufficiency (chronic) (peripheral) (4) Chronic use of steroids: (5) Smoker: CODE(S): F17.200 - Nicotine dependence, unspecified, uncomplicated (6) History of smoking: CODE(S): Z87.891 - Personal history of nicotine dependence (7) Encounter for smoking cessation counseling: CODE(S): Z71.6 - Tobacco abuse counseling (8) History of rheumatoid arthritis: CODE(S): Z87.39 - Personal history of other diseases of the musculoskeletal system and connective tissue (9) Obesity (BMI 30-39.9): CODE(S): E66.9 - Obesity, unspecified (10) History of carpal tunnel repair: CODE(S): Z98.890 - Other specified postprocedural states (11) History of repair of left rotator cuff: CODE(S): Z98.890 - Other specified postprocedural states PLAN: Plan This is a 63-year-old female who presented with ulcerations on the lower extremities bilaterally. These ulcerations had been present for several months, and had failed to heal appropriately. The ulcerations were blamed by the patient as a result of clumsiness, indicating they are the result of bumping into things. It has been repeatedly noted that the patient has multiple scrapes and scratches on all extremities. 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 The appropriate measures relative to the management of suspected chronic venous insufficiency have been discussed with the patient in detail. The patient has been instructed to elevate her lower extremities is much as possible. She is to continue sleeping on a flat mattress at night. She is to elevate her lower extremities during daytime hours as well. Leg elevation is to be to heart level, or higher. The patient has been provided Tubigrip's to be worn on a daily basis. Activity and ambulation have been encouraged. We are to continue the use of Mariana, which will be applied topically on a daily basis. The patient has been instructed in the appropriate means of application. A venous duplex examination has been obtained, revealing the saphenofemoral junctions to be incompetent bilaterally, though the great and small saphenous veins are bilaterally competent. The patient has been instructed to maintain a nutritious diet. She has been advised to discontinue her smoking habit, and indicates that she has had some success thus far. In addition, because she is on chronic steroid therapy for her rheumatoid arthritis, it has been explained that the steroids may delay the wound healing process. Total time: 22 minutes
== END 2024-06-19 23:59 | disposition home or self-care (01) ==
LOC: WC 13:30
PROVIDERS: PCP Student in an Organized Health Care Education/Training Program; Referring Provider Student in an Organized Health Care Education/Training Program; Visit Provider Surgery
DX: I83.012 Varicose veins of right lower extremity with ulcer of calf (principal); L97.212 Non-pressure chronic ulcer of right calf with fat layer exposed; I83.022 Varicose veins of left lower extremity with ulcer of calf; L97.222 Non-pressure chronic ulcer of left calf with fat layer exposed; M06.9 Rheumatoid arthritis, unspecified; F17.200 Nicotine dependence, unspecified, uncomplicated; E66.9 Obesity, unspecified; Z71.6 Tobacco abuse counseling; Z68.38 Body mass index [BMI] 38.0-38.9, adult; Z79.52 Long term (current) use of systemic steroids; Z79.899 Other long term (current) drug therapy; Z98.890 Other specified postprocedural states
CPT/HCPCS: 11042

== ENCOUNTER 2024-06-22 13:17 | Outpatient (RCR) | payer BC, SELFPAY ==
[2024-06-20 00:29] VITALS: BP 164/95; PULSE 98; RESP 18; TEMP 36.3; BMI 38.2
[2024-06-22 13:40] VITALS: BP 151/94; PULSE 101; RESP 18; TEMP 35.6; BMI 38.2
== END 2024-07-19 23:59 | disposition home or self-care (01) ==
LOC: WC 13:17
PROVIDERS: PCP Student in an Organized Health Care Education/Training Program; Referring Provider Student in an Organized Health Care Education/Training Program; Visit Provider Surgery
DX: I83.022 Varicose veins of left lower extremity with ulcer of calf (principal); L97.222 Non-pressure chronic ulcer of left calf with fat layer exposed; Z87.39 Personal history of other diseases of the musculoskeletal system and connective tissue; E66.9 Obesity, unspecified; Z68.38 Body mass index [BMI] 38.0-38.9, adult; F17.200 Nicotine dependence, unspecified, uncomplicated; Z71.6 Tobacco abuse counseling; Z79.52 Long term (current) use of systemic steroids; Z79.899 Other long term (current) drug therapy
CPT/HCPCS: 11042